=== PATIENT | female | born 1945 | race Caucasian/White ===

== ENCOUNTER 2021-05-23 10:18 | Day surgery (SDC) | payer MEDICARE ==
[~2021-05-23] VITALS: Ht 167.6 cm; Wt 58.8 kg
[~2021-05-23 10:18] MED LIST: ALPR0.254 PO; ASPI-482 PO; CEPH500C PO; FAMO20TA5 PO; FERR-36 PO; FOLI0.8T21 PO; FURO40TA4 PO; HEPARIN SODIUM 1,000 UNIT in IV NORMAL SALINE 100ML 100 ML IRR ONE; HYDROmorphone 2 MG/ML VIAL IVP PRN; IV RINGERS,LACTATED 1000ML 1,000 ML IV SCH; METO-239 PO; MORPHINE SULFATE 2 MG/ML INJ. IVP PRN; PANT40TA77 PO; PROCHLORPERAZINE 10 MG/2 ML VIAL. IVP PRN; TRAM50TA PO; ceFAZolin SODIUM IV Push 1 GM VIAL. IVP PRN; fentaNYL PF VIAL 100 MCG/2 ML VIAL IVP PRN
[2021-05-23 11:05] VITALS: BP 210/107
[2021-05-23] MEDS ORDERED: HEPARIN for IV BOLUS 10,000 UNIT/10 ML VIAL. ONE (11:33)
[2021-05-23] MEDS ORDERED: PROPOFOL 10 MG/ML (20ML) VIAL. IV ONE ×2 (11:45→12:56)
[2021-05-23] MEDS ORDERED: ONDANSETRON PF 4 MG/2 ML VIAL. ONE (11:45)
[2021-05-23] MEDS ORDERED: SEVOFLURANE 31 TO 60 MINUTES. IH ONE (11:45)
[2021-05-23] MEDS ORDERED: LIDOCAINE 2% PF 5 ML VIAL. ONE (11:45)
[2021-05-23] MEDS ORDERED: fentaNYL PF VIAL 100 MCG/2 ML VIAL ONE ×2 (11:46→13:49)
[2021-05-23] MEDS ORDERED: ROCURONIUM 50 MG/5 ML VIAL. ONE (11:46)
[2021-05-23 11:47] LABS: CALCIUM 11.6 mg/dL (8.5-10.1); CREATININE 7.8 mg/dL (0.6-1.0); POTASSIUM 4.5 mmol/L (3.5-5.1)
[2021-05-23] MEDS ORDERED: hydrALAZINE 20 MG/ML VIAL. IVP ONE ×2 (12:00)
[2021-05-23] MEDS ORDERED: GLYCOPYRROLATE 1 MG/5 ML VIAL. ONE (12:57)
[2021-05-23] MEDS ORDERED: NEOSTIGMINE METHYLSULFATE 5 MG/5 ML SYRINGE. ONE (12:57)
[2021-05-23] MEDS ORDERED: SUGAMMADEX SODIUM 200 MG/2 ML VIAL. IVP ONE (13:15)
--- NOTE | 2021-05-23 13:54 | PDOC4 ---
Operative Note Operative Note OPERATIVE NOTE: PREOPERATIVE DIAGNOSIS: Renal failure, umbilical hernia POSTOPERATIVE DIAGNOSIS: Renal failure, umbilical hernia PROCEDURE: Laparoscopic peritoneal dialysis catheter placement, umbilical hernia repair SURGEON: Ricardo Wilson MD [employer]ASS SAWYER: KOURTNEY Lopez, Tim Salcedo MS 4 ANESTHESIA: General. ESTIMATED BLOOD LOSS: 10 mL. SPECIMENS: None. DRAINS: None. COMPLICATIONS: None. INDICATIONS: The patient is a 76-year-old female who was referred for placement of a peritoneal dialysis catheter due to renal failure. In addition on exam she is found to have a small umbilical hernia repair. The plan is to proceed with repair of the umbilical hernia and placement of a peritoneal dialysis catheter. The details and risks of surgery were discussed with the patient. The risks of surgery include bleeding, infection, visceral injury, pain, anesthetic risk, potential need for additional surgery or procedure. In addition, the patient is aware of the potential for catheter malfunction or dysfunction and possibility of needing revision, replacement, or removal of the catheter. They understand all this and would like to proceed. DESCRIPTION OF PROCEDURE: The patient was brought to the operating room and placed supine on the operating table. General anesthesia was performed. The abdomen was prepped with ChloraPrep and draped in a standard surgical manner. A small incision was made in the patient's left upper quadrant through which a visualized 5-mm trocar was inserted. A pneumoperitoneum was then created and the laparoscope was introduced. Initial inspection showed no significant adhesions or any other gross abnormalities. Using the placement template, the left abdomen was marked with a planned catheter exit site in the LLQ. A small incision was made to the left of the patient's midline at the marked location for the exit site of the cuff. An 8-mm trocar was inserted through this location. The coiled portion of the lower catheter was then inserted into the pelvis under direct visualization. The cuff was positioned in the rectus musculature. The coiled portion rested well in the inferior mid pelvis. The pneumoperitoneum was then relieved. An incision was then made in the left lower quadrant at the planned exit site. The proximal portion of the catheter was tunnelled subcutaneously to the exit site. The proximal cuff remained in the subcutaneous tissue a few cm away from the exit site. The catheter was then assembled to IV tubing and tested by infusing a liter of saline. The saline passed easily into the abdomen and the bag was placed on the floor. Nearly all of the saline readily was retrieved with prompt flow. The abdominal cavity was then reinsufflated and the laparoscope was reintroduced showing no change in the catheter position and the cuff remained in the rectus. The pneumoperitoneum was relieved and the ports were removed. A curved infraumbilical incision was made in the skin with a scalpel. Cautery dissection was carried down to the fascia. The umbilical tissue was elevated off the fascia exposing a small hernia defect. The fascial edges were closed primarily with interrupted 0 Prolene sutures. The umbilicus was secured back to the fascia with 0 Vicryl. The subcutaneous tissue was closed with 3-0 Vicryl. The skin was closed with 4-0 Monocryl. The catheter was then assembled to the connector tubing as per the dialysis instructions. All the incision sites were closed with 4-0 Monocryl. Steri-Str ips and sterile dressing were then applied. The patient tolerated procedure well and was sent to the recovery room in stable condition. At the end of the case all counts were correct. RICARDO WILSON MD May 23, 2021 13:54
[2021-05-23] MEDS ORDERED: HYDR-2761 PO (13:58)
--- NOTE | 2021-05-23 13:59 | DISCH ---
DISCHARGE INSTRUCTIONS Condition on Discharge Condition on Discharge: Stable Activity After Discharge Activity Instructions for Disc: Other, see below (no lifting over 20 lbs X 4 weeks) Wound Incision Care Wound/Incision Care: Other, see below (keep dressing clean and dry) Follow-Up Follow up with: Dr Wilson in 2 weeks in office, call for appointment [phone] ALICIA WILSON MD May 23, 2021 13:59
[2021-05-23] MEDS ORDERED: HYDROcodone/APAP 5/325MG 1 TAB TABLET PO ONE (14:30)
[2021-05-23 14:40] VITALS: BP 159/85
== END 2021-05-23 17:49 | disposition home or self-care (01) ==
LOC: SURG 10:18
PROVIDERS: ATTEND Surgery
DX: K42.9 Umbilical hernia without obstruction or gangrene (principal); N19 Unspecified kidney failure; I10 Essential (primary) hypertension; K21.9 Gastro-esophageal reflux disease without esophagitis; F41.9 Anxiety disorder, unspecified; Z99.2 Dependence on renal dialysis; Z79.899 Other long term (current) drug therapy; Z98.890 Other specified postprocedural states; Z20.822 Contact with and (suspected) exposure to COVID-19
CPT/HCPCS: 49324; 49652; 80048; 87426; A4213; A4314; A4364; A4930; A6219; A6402; C1752; J0360; J0690; J1644; J2405; J2704; J2710; J3010; J3490; A4452